=== PATIENT | male | born 1985 | race Caucasian/White ===

== ENCOUNTER 2023-11-10 06:51 | Emergency (ER) | payer MEDICAID, SELFPAY ==
--- NOTE | ~2023-11-10 | CT_ITS ---
CT ANGIOGRAM NECK WITH CONTRAST CT ANGIOGRAM BRAIN WITH CONTRAST CLINICAL INFORMATION: Headache and dizziness. COMPARISON: Head CT November 10, 2023. TECHNIQUE: Test bolus sequences followed by intravenous administration 70 mL of Omnipaque 350. Helical imaging was performed in the axial plane from the thoracic inlet to the skull vertex. Delayed postcontrast imaging of the head was also performed. The data was processed at the cardiac cath technologist workstation for generation of MIP sequences. Angled MIPs and volume rendered reformatted images were also generated at an offline 3D workstation under concurrent supervision. Stenoses are assessed in accordance with NASCET criteria unless otherwise indicated. This CT examination was performed using dose optimization techniques as appropriate, variously including the following: *Automated exposure control *Adjustment of mA and/or kV according to patient size (this includes techniques or standardized protocols for targeted exams where dose is matched to indication/reason for exam; i.e. extremities or head) *Use of iterative reconstruction technique FINDINGS: BRAIN: [There is no intracranial hemorrhage, hydrocephalus, extra-axial surface collection, midline shift, or other herniation pattern. Vinson to white matter differentiation is diffusely maintained without evidence of an evolved acute territorial infarct. The basilar cisterns are preserved. No significant soft tissue abnormality. No acute osseous abnormality. There is a 1.6 cm retention cyst within the posterior aspect of the right maxillary sinus. CERVICAL SOFT TISSUES AND LUNG APICES: Significant periapical disease involving the maxillary mandibular dentition. NECK CTA: [There is a classic 3 vessel configuration of the aortic arch. Proximal arch vessels are non-stenotic. The vertebral arteries are codominant. No significant ostial stenosis is visualized on either side. Both vertebral arteries are widely patent throughout their extracranial cervical course. Both common and internal carotid arteries are normal in course and caliber.] BRAIN CTA: [There is normal opacification of major intracranial arteries. No focal flow-limiting stenosis nor discrete proximal large artery occlusion. No aneurysm. Timing of the contrast bolus allows assessment of the major dural venous sinuses, which all opacify normally] CT/CT angio head neck IMPRESSION: * No acute intracranial findings. * No acute arterial occlusions and no significant arterial stenoses within the head or neck. * Significant periapical disease involving the maxillary and mandibular dentition. Dental exam correlation advised.
--- NOTE | ~2023-11-10 | CT_ITS ---
EXAMINATION: CT HEAD WITHOUT CONTRAST CLINICAL INFORMATION: Posterior headache evaluate for stroke COMPARISON: None available. TECHNIQUE: Contiguous axial imaging was performed from the skull base to vertex without intravenous administration of contrast. This CT examination was performed using dose optimization techniques as appropriate, variously including the following: *Automated exposure control *Adjustment of mA and/or kV according to patient size (this includes techniques or standardized protocols for targeted exams where dose is matched to indication/reason for exam; i.e. extremities or head) *Use of iterative reconstruction technique DLP: 878.24 mGy-cm FINDINGS: There is no evidence of acute intracranial hemorrhage or territorial infarction. No abnormal mass effect or midline shift is seen. Vinson to white matter differentiation is well preserved. No extra-axial fluid collections are identified. The ventricles are normal in size. There is no abnormal attenuation within the brain parenchyma. The osseous structures and soft tissues are normal. Mucosal polyp versus retention cyst right maxillary sinus. The mastoid air cells and visualized portions of the paranasal sinuses are well aerated. CT/CT head/brain wo IV con IMPRESSION: No acute intracranial pathology. This critical result was discussed with Krystal Quiles by telephone on 11/10/2023 9:40 AM and it was ascertained that the content and urgency of the report was understood at the time of direct communication.
--- NOTE | 2023-11-10 07:08 | ECG_ITS ---
Test Reason : weakness Blood Pressure : / mmHG Vent. Rate : 082 BPM Atrial Rate : 082 BPM P-R Int : 162 ms QRS Dur : 094 ms QT Int : 370 ms P-R-T Axes : 042 -40 042 degrees QTc Int : 432 ms Normal sinus rhythm Left axis deviation Abnormal ECG No previous ECGs available Referred By: Krystal Quiles Electronically Signed By:NAKITA APONTE
[2023-11-10 07:11] VITALS: BP 138/86; BP 140/92; PULSE 106; PULSE 87; RESP 16; TEMP 36.8; O2SAT 97; O2SAT 99; BMI 32.0
--- NOTE | 2023-11-10 07:14 | PC.NURSE ---
a&ox4. vss and up to date. nsr on the gambling monitor. biba from home d/t generalized intermittent BARRAGAN/dizziness/weak/decreased PO intake x yesterday. pt c/o blurry vision. neuros intact. strength equal bilaterally. face symmetrical. able to speak in full/clear sentences. ekg performed by tech. no sob/wob noted. respirations even/unlabored. plan of care ongoing. call oneill placed within reach.
--- NOTE | 2023-11-10 07:23 | PC.NURSE ---
20gIV placed in the right AC - labs obtained/sent to lab.
[2023-11-10 07:26] LABS: MANUAL DIFF FLAG NO
[2023-11-10 07:27] LABS: Basophils Absolute Auto 0.1 X10*3/uL (0.0-0.2); Basophils Percent Auto 0.4 % (0-2); Eosinophils Absolute Auto 0.4 X10*3/uL (0.0-0.4); Eosinophils Percent Auto 3.8 % (0-4); Imm Gran Abs Auto 0.03 X10*3/uL (0.00-0.03); Imm Gran Pct Auto 0.3 % (0.0-0.4); Lymphocytes Percent Auto 26.3 % (20-40); Mean Corpuscular HGB Conc 35.6 g/dl (31.0-36.0); Mean Corpuscular Hemoglobin 31.1 pg (27.0-33.0); Mean Corpuscular Volume 87.5 fL (80.0-98.0); Mean Platelet Volume 11.5 fL (9.4-12.4); Monocytes Percent Auto 9.1 % (2-11); Neutrophils Absolute Auto 6.9 x10*3/uL (2.0-8.3); Neutrophils Percent Auto 60.1 % (45-73); Platelet Count 220 X10*3/uL (160-400); Red Blood Count 5.14 X10*6/uL (4.60-5.80); Red Cell Distribution Width 12.9 % (11.0-16.0); White Blood Count 11.5 X10*3/uL (4.8-10.8)
--- NOTE | 2023-11-10 07:31 | ED_ITS ---
HPI - General Adult General Chief complaint: General Medical Stated complaint: SYNCOPE Time Seen by Provider: 11/10/23 06:52 Source: patient, EMS, RN notes reviewed and old records reviewed Mode of arrival: EMS Limitations: no limitations History of Present Illness ED Provider: KRYSTAL QUILES PA-C HPI narrative: 38 year old male with pmhx significant for presents to the ED today via EMS from home for evaluation of generalized intermittent headache, dizziness, and generalized weakness which began on waking 24 hours ago. Describes dizziness as a light headed sensation that only occurs when his google watch states his heart rate is elevated to low 110's. Dizziness is not exacerbated with head movements or positional changes. Admits that he has to stand up and ambulate in order for his symptoms to resolve. His headache began occipitally and radiates to bilateral temples. This has been constant since onset, rate it a 7/10. Endorses associated blurred vision within his right eye. Denies fever, chills, ear pain, double vision, vision loss, chest pain, sob, LE pain/ swelling. Denies recent travel or long car rides. Denies difficulty ambulating or speaking. Related Data Previous Rx's ?Medication ?Instructions ?Recorded diphenhydramine HCl 25 mg capsule 50 mg (2 x 25 mg) PO Q6-8H PRN 11/10/23 (Benadryl) headache #14 caps metoclopramide HCl 10 mg tablet 10 mg PO Q6H PRN nausea and 11/10/23 (Reglan) vomiting #14 tabs Allergies Allergy/AdvReac Type Severity Reaction Status Date / Time Penicillins Allergy Unknown Verified 11/10/23 07:12 tramadol Allergy Unknown Verified 11/10/23 07:12 Review of Systems 2 Review of Systems: Constitutional: No fever, chills, fatigue, night sweats, weight changes, + generalized weakness ENT/Mouth: No ear pain, hearing loss, nasal congestion, sinus pain, rhinorrhea, sore throat Eyes: No eye pain, swelling, redness, vision changes, discharge Cardio: No chest pain, palpitations, STONE, orthopnea, peripheral edema Pulm: No SOB, cough, sputum, wheezing, dyspnea, hemoptysis GI: No nausea, vomiting, hematemesis, abdominal pain, diarrhea, constipation, hematochezia, melena : No irregular bleeding, dysuria, frequency, urgency, hesitancy, hematuria, flank pain, urinary flow changes, urinary incontinence or retention MSK: No back pain, neck pain, joint pain, myalgias Skin: No lesions, rashes Neuro: No weakness, numbness, paresthesias, LOC, +dizziness, +headache Psych: No anxiety/panic, depression, SI/HI, AH/VH All other systems reviewed and are negative. [facility] Past Medical History Attestation statement: The following information was validated with the patient. Source: old records reviewed and nursing notes reviewed Social History Social History Advance Directives: No Advance Directives Information Provided: No Do you have a plan to hurt others: No Plan Physical Exam ED Vital Signs: Vital Signs - 24 hr 11/10/23 07:11 11/10/23 10:43 Temperature 98.2 F 98.6 F Pulse Rate 87 77 Respiratory Rate 16 18 Blood Pressure 138/86 132/85 Pulse Oximetry 97 98 Oxygen Delivery Method Room Air Room Air BMI result Body Mass Index 32.0 Vital signs stable, afebrile General: Well appearing, in no acute distress. Skin: Warm, dry, intact. No rashes or lesions. Head: Normocephalic, atraumatic. EENT: Hearing is intact b/l. Conjunctiva clear. Sclera is anicteric. PERRLA. EOM intact. Moist mucous membranes.? Neck: Supple without LAD. FROM. Trachea midline.? Cardiac: Chest wall symmetric. Tachycardiac. No MRG. No JVD. Lungs: Normal respiratory effort without accessory muscle use. CTA bilaterally. No rales, rhonchi, or wheezes.? Abdomen: Soft, non-tender, non-distended. No rebound tenderness or guarding. Positive BS x4. Back: No midline spinous or paraspinal tenderness. No step off deformity. Ext: Upper and lower extremities atraumatic, without tenderness, deformity, swelling or erythema. Full ROM throughout. Strength 5/5 throughout. Capillary refill <2 seconds in all extremities. Pulses 2+ equal and bilateral. Neuro: AOx3. Normal speech. No facial droop, pronator drift. CN 2-12 grossly intact. No nystagmus. Visual price intact. Strength 5/5 intact throughout. Sensation intact to light touch. NV intact distally. Ambulating with steady gait. No dysmetria. Psych: Appropriate mood and affect. Responds appropriately to questions. Course Course Course Narrative: 0800 -- CBC with slight leukocytosis to 11.5, no left shift. no anemia. h&h stable. chemistry without acute electrolyte abnormality requiring intervention. BUN 5, Cr 0.85. hypercalcemic to 10.5. with elevated PTH. EKG showing normal sinus rhythm with a rate of 82 beats per minute, QT 370, QTC 432, no acute ischemic changes or ST elevations. He has tested negative for covid/flu/rsv. 823-- I discussed case with my attending physician. Given patient's presentation, acute CVA cannot be ruled out. As symptoms began >24 hours ago, patient is out of therapeutic window for ischemia. Will obtain dry CT head/brain while ddimer is pending. Plan for CTA head/neck if ddimer negative. Patient will likely require admission to medicine for cerebellar stroke work up including MRI if this cannot be obtained from ED. 917-- Ddimer negative. CT angio head/ neck ordered to assess for dissection. > also discussed w/ hospitalist NOAH Wu who agrees w/ MRI brain w/ possible neuro consult/ admission. 942 -- Received call from [facility] regarding ct head w/o con -- negative for hemorrhage. > discussed need for MRI with patient. reports associated anxiety/ claustrophobia regarding this scan. after a long discussion about the need for scan to r/o posterior stroke, patient is agreeable to prophylactic ativan administation prior to imaging. 1111-- CT angio head/neck does not reveal acute dissection or stenosis. MRI brain pending. > patient recieving reglan, benadryl, and toradol for BARRAGAN 1239 -- Patient pre-medicated with 1mg PO ativan prior to imaging. Per electrical instrumentation technician, upon entering the room, patient began shaking and adamantly declining MRI scan stating I can't do it . I was informed of the situation and patient was brought back to the ED. I further discussed the crucial need for MRI with patient. Patient informed that this imaging is best to rule out a posterior stroke as we are unable to see this on the 2 other imaging modalities of his brain that he received today. I offered to provide patient with additional IM Ativan however this would require admission to medicine as MRI is unable to fit patient into the schedule in a timely manner d/t patient load. Patient continues to decline MRI and admission has he has pets to care for at home. I advised that he try and find someone to watch his pets while he is admitted and he state that he has no one else to watch them. I informed patient that declining MRI at this time can lead to worsening symptoms, worsening pain, decreased quality of life, disability, permanent neuro deficits, and even . Patient verbalizes understanding to both me and RN Tessa. He will be signing AMA paperwork. > Discussed worsening signs and symptoms and when to return to the ED. Patient is ambulating with steady gait. Continues to speak in clear sentences. > will send reglan and benadryl to pharmacy for BARRAGAN. Dizziness is not consistent with vertigo and I do not feel as though meclizine is warranted at this time. Medications Administered Discontinued Medications Generic Name Dose Route Start Last Admin Trade Name Freq PRN Reason Stop Dose Admin Diphenhydramine HCl 50 mg 11/10/23 09:43 11/10/23 09:47 Diphenhydramine Hcl 50 Mg/Ml Vial IVPUSH 11/10/23 09:44 50 mg ONCE ONE Administration Sodium Chloride 1,000 mls @ 999 mls/hr 11/10/23 08:00 11/10/23 09:50 Ns IV 11/10/23 09:00 Infused .Q1H1M ARABELLA Infusion Iohexol 100 ml 11/10/23 10:07 11/10/23 10:07 Iohexol 350 Mg/Ml 100 Ml Infus..Btl IV 11/10/23 10:08 70 ml ONCE ONE Administration Ketorolac Tromethamine 15 mg 11/10/23 11:10 11/10/23 11:32 Ketorolac Tromethamine 15 Mg/Ml Vial IVPUSH 11/10/23 11:11 15 mg ONCE ONE Administration Lorazepam 1 mg 11/10/23 11:52 11/10/23 11:56 Lorazepam 1 Mg Tablet PO 11/10/23 11:53 1 mg ONCE ONE Administration Metoclopramide HCl 10 mg 11/10/23 11:10 11/10/23 11:32 Metoclopramide Hcl 10 Mg/2 Ml Vial IVPUSH 11/10/23 11:11 10 mg ONCE ONE Administration Medical Decision Making Medical Decision Making [facility] Narrative: 38 year old male with pmhx significant for presents to the ED today via EMS from home for evaluation of generalized intermittent headache, dizziness, weakness which began on waking 24 hours ago. Differential diagnoses includes: BPPV vs labrynthitis. No red flag features for central vertigo to vertical/bidirectional or nonfatigable nystagmus, focal neurologic findings on exam (including inability to ambulate). Presentation not consistent with an acute DYNAMOMETER MECHANIC infection, vertebral basilar artery insufficiency, cerebellar hemorrhage or infarction,?intracranial mass or bleed, temporal lobe epilepsy,?MS, trauma, complex migraine headache. Other acute, emergent causes of vertigo are unlikely given at this time. Viral syndrome, ACS, arrhythmia and PE are also on differential. PERC 1 (tachycardic to 110's in room). Plan: labs, trop, ekg, ddimer, CT head, CTA head/neck Differential Diagnosis Differential Diagnoses: The differential diagnosis associated with the presentation includes as above. Admission/Observation Consideration of admission/observation: Escalation of care including admission/observation considered Patient declining admission to medicine for MRI brain. Consult Healthcare Provider Management of the patient was discussed with: Hospitalist (Jazmin Le) Lab Data [facility] Lab Attestation statement: I reviewed the patient's lab results. As above 11/10/23 07:18 11/10/23 07:18 Labs: Lab Results 11/10/23 11/10/23 Range/Units 07:18 08:40 WBC 11.5 H (4.8-10.8) X10*3/uL RBC 5.14 (4.60-5.80) X10*6/uL Hgb 16.0 (14.0-18.0) g/dl Hct 45.0 (42.0-52.0) % MCV 87.5 (80.0-98.0) fL MCH 31.1 (27.0-33.0) pg MCHC 35.6 (31.0-36.0) g/dl RDW 12.9 (11.0-16.0) % Plt Count 220 (160-400) X10*3/uL MPV 11.5 (9.4-12.4) fL Immature Gran % (Auto) 0.3 (0.0-0.4) % Neut % (Auto) 60.1 (45-73) % Lymph % (Auto) 26.3 (20-40) % [place] % (Auto) 9.1 (2-11) % Eos % (Auto) 3.8 (0-4) % Baso % (Auto) 0.4 (0-2) % Lymph # (Auto) 3.0 (1.2-4.9) X10*3/uL [place] # (Auto) 1.0 (0.1-1.2) X10*3/uL Eos # (Auto) 0.4 (0.0-0.4) X10*3/uL Baso # (Auto) 0.1 (0.0-0.2) X10*3/uL Abs Immat Gran (auto) 0.03 (0.00-0.03) X10*3/uL Absolute Neuts (auto) 6.9 (2.0-8.3) x10*3/uL Absolute Nucleated RBC 0.000 (0.0-0.012) X10*3/uL Nucleated RBC % (auto) 0.0 (0.0-0.2) /100WBC D-Dimer High Sensitivty < 150 NG/ML Sodium 143 (135-145) mmol/L Potassium 3.5 (3.3-5.1) mmol/L Chloride 106 (96-108) mmol/L Carbon Dioxide 24 (22-29) mmol/L Anion Gap 17 (12-20) BUN 5 L (9-16) mg/dL Creatinine 0.85 (0.5-1.4) mg/dL Estim Creat Clear Calc 143.2 Estimated GFR > 60 Random Glucose 105 (60-115) mg/dL Calcium 10.5 H (8.4-10.2) mg/dL Total Bilirubin 0.5 (0.0-1.0) mg/dL AST 22 (5-37) U/L ALT 39 (0-40) U/L Alkaline Phosphatase 64 (39-117) U/L Troponin I High Sens < 2.7 (<3.5-35.0) ng/L Total Protein 7.6 (6.5-8.0) g/dL Albumin 4.8 (3.5-5.0) g/dL PTH Intact 81.7 H (8.7-77.1) pg/mL Influenza Type A (PCR) NEGATIVE (Negative) Influenza Type B (PCR) NEGATIVE (Negative) RSV RNA Qual (PCR) NEGATIVE (Negative) SARS-CoV-2 RNA (RT-PCR) NEGATIVE (Negative) Independent Interpretation I performed an independent interpretation of an: EKG and CT Scan Interpretation: EKG showing normal sinus rhythm with a rate of 82 beats per minute, QT 370, QTC 432, no acute ischemic changes or ST elevations. CT head/ brain w/o con does not reveal acute hemorrhage, agree with radiologist's interpretation. CTA head/ neck without acute dissection, agree with radiologist's interpretation. Radiology Impression Discussion of test interpretation with radiology: I have reviewed the radiologist's reading. Radiologist Impression: EXAMINATION: CT HEAD WITHOUT CONTRAST CLINICAL INFORMATION: Posterior headache evaluate for stroke COMPARISON: None available. TECHNIQUE: Contiguous axial imaging was performed from the skull base to vertex without intravenous administration of contrast. This CT examination was performed using dose optimization techniques as appropriate, variously including the following: *Automated exposure control *Adjustment of mA and/or kV according to patient size (this includes techniques or standardized protocols for targeted exams where dose is matched to indication/reason for exam; i.e. extremities or head) *Use of iterative reconstruction technique DLP: 878.24 mGy-cm FINDINGS: There is no evidence of acute intracranial hemorrhage or territorial infarction. No abnormal mass effect or midline shift is seen. Vinson to white matter differentiation is well preserved. No extra-axial fluid collections are identified. The ventricles are normal in size. There is no abnormal attenuation within the brain parenchyma. The osseous structures and soft tissues are normal. Mucosal polyp versus retention cyst right maxillary sinus. The mastoid air cells and visualized portions of the paranasal sinuses are well aerated. CT/CT head/brain wo IV con IMPRESSION: No acute intracranial pathology. This critical result was discussed with Krystal Quiles by telephone on 11/10/2023 9:40 AM and it was ascertained that the content and urgency of the report was understood at the time of direct communication. CT ANGIOGRAM NECK WITH CONTRAST CT ANGIOGRAM BRAIN WITH CONTRAST CLINICAL INFORMATION: Headache and dizziness. COMPARISON: Head CT November 10, 2023. TECHNIQUE: Test bolus sequences followed by intravenous administration 70 mL of Omnipaque 350. Helical imaging was performed in the axial plane from the thoracic inlet to the skull vertex. Delayed postcontrast imaging of the head was also performed. The data was processed at the nanotechnologist workstation for generation of MIP sequences. Angled MIPs and volume rendered reformatted images were also generated at an offline 3D workstation under concurrent supervision. Stenoses are assessed in accordance with NASCET criteria unless otherwise indicated. This CT examination was performed using dose optimization techniques as appropriate, variously including the following: *Automated exposure control *Adjustment of mA and/or kV according to patient size (this includes techniques or standardized protocols for targeted exams where dose is matched to indication/reason for exam; i.e. extremities or head) *Use of iterative reconstruction technique FINDINGS: BRAIN: [There is no intracranial hemorrhage, hydrocephalus, extra-axial surface collection, midline shift, or other herniation pattern. Vinson to white matter differentiation is diffusely maintained without evidence of an evolved acute territorial infarct. The basilar cisterns are preserved. No significant soft tissue abnormality. No acute osseous abnormality. There is a 1.6 cm retention cyst within the posterior aspect of the right maxillary sinus. CERVICAL SOFT TISSUES AND LUNG APICES: Significant periapical disease involving the maxillary mandibular dentition. NECK CTA: [There is a classic 3 vessel configuration of the aortic arch. Proximal arch vessels are non-stenotic. The vertebral arteries are codominant. No significant ostial stenosis is visualized on either side. Both vertebral arteries are widely patent throughout their extracranial cervical course. Both common and internal carotid arteries are normal in course and caliber.] BRAIN CTA: [There is normal opacification of major intracranial arteries. No focal flow-limiting stenosis nor discrete proximal large artery occlusion. No aneurysm. Timing of the contrast bolus allows assessment of the major dural venous sinuses, which all opacify normally] CT/CT angio head neck IMPRESSION: * No acute intracranial findings. * No acute arterial occlusions and no significant arterial stenoses within the head or neck. * Significant periapical disease involving the maxillary and mandibular dentition. Dental exam correlation advised. Independent Historian Clinical information obtained from an independent historian. History obtained from or confirmed by: EMS Prescription Management I considered prescription management with: Other (Reglan, Benadryl) Social Determinants Patient?s care significantly limited by Social Determinants of Health including: Other Social Determinant of Health Critical Care Time Critical Care Time Critical Care Time: Yes Total Critical Care Time: 40 Attestation: Critical care time in the amount of 40 minutes has been provided to the patient in terms of direct patient care, frequent reevaluation, consultation with hospitalist, review and interpretation of medical data and results, and management of potentially life-threatening conditions. This is all outside of any medical procedures. Discharge Plan Discharge Clinical Impression: Dizziness, Headache Patient Disposition: Left Against Medical Advice Instructions: Vertigo (ED), Acute Headache (ED), Dizziness (ED) Additional Instructions: You have been evaluated in the Emergency Department today for headache and dizziness. Sometimes it is difficult to explain the cause of headache but the negative workup today is reassuring. Please take the following medications together every 6 hours as needed for headache, nausea or vomiting. ? - Reglan 10 mg - Benadryl 50 mg After you take these medications, lie down in a dark quiet room and try to fall asleep. ?These medications will make you sleepy, do not drive or work after taking these medications. Your calcium levels were elevated. Please follow up with your primary care physician within two days. If you do not have a PCP, a referral has been provided to you. As discussed, return to the Emergency Department if you experience worsening or uncontrolled pain, vision changes, recurrent vomiting, difficulty with normal activities, abnormal behavior, difficulty walking, numbness, weakness, or any other concerning symptoms. Prescriptions: New metoclopramide HCl [Reglan] 10 mg tablet 10 mg PO Q6H PRN (Reason: nausea and vomiting) Qty: 14 0RF diphenhydramine HCl [Benadryl] 25 mg capsule 50 mg PO Q6-8H PRN (Reason: headache) Qty: 14 0RF Referrals: [facility] Primary [facility], [place] [Provider Group] [facility] Neuro/Sleep [Provider Group] Stand Alone Forms: Against Medical Advice Print Language: Pashto
[2023-11-10 07:41] LABS: Alanine Aminotransferase 39 U/L (0-40); Albumin Level 4.8 g/dL (3.5-5.0); Alkaline Phosphatase 64 U/L (39-117); Anion Gap 17 (12-20); Aspartate Amino Transferase 22 U/L (5-37); Bilirubin Total 0.5 mg/dL (0.0-1.0); Blood Urea Nitrogen 5 mg/dL (9-16); Calcium 10.5 mg/dL (8.4-10.2); Carbon Dioxide 24 mmol/L (22-29); Chloride 106 mmol/L (96-108); Creatinine Clr Calc Pharmacy 143.2; Estimated Glomerular Filt Rate > 60; Glucose Random 105 mg/dL (60-115); Potassium 3.5 mmol/L (3.3-5.1); Sodium 143 mmol/L (135-145); Total Protein 7.6 g/dL (6.5-8.0)
[2023-11-10 08:07] LABS: Influenza A PCR NEGATIVE (Negative); Influenza B PCR NEGATIVE (Negative); Resp Syncy Virus RNA Qual PCR NEGATIVE (Negative); SARS COV2 PCR INHOUSE NEGATIVE (Negative)
[2023-11-10] MEDS: 0.9 % Sodium Chloride 1,000 ML 999 ML IV (08:22)
[2023-11-10 08:23] LABS: Troponin-I High Sensitivity < 2.7 ng/L (<3.5-35.0)
--- NOTE | 2023-11-10 09:00 | PC.NURSE ---
IVF administered per provider order. labs obtained/sent to lab by [facility]. head CT completed.
[2023-11-10 09:14] LABS: Parathyroid Hormone Intact 81.7 pg/mL (8.7-77.1)
[2023-11-10 09:16] LABS: D Dimer High Sensitivity < 150 NG/ML
[2023-11-10] MEDS: diphenhydrAMINE HCL 50 MG/ML VIAL IVPUSH (09:47)
--- NOTE | 2023-11-10 09:48 | PC.NURSE ---
MRI screening form filled out/faxed/placed in pt's chart. medication administered per provider order. CTA being completed at this time.
[2023-11-10] MEDS: iohexoL 350 MG/ML 100 ML INFUS..BTL IV (10:07)
[2023-11-10 10:43] VITALS: BP 132/85; PULSE 77; RESP 18; TEMP 37; O2SAT 98
--- NOTE | 2023-11-10 10:43 | PC.NURSE ---
vss and up to date. pt waiting to go to MRI at this time.
[2023-11-10] MEDS: Ketorolac Tromethamine 15 MG/ML VIAL IVPUSH (11:32)
[2023-11-10] MEDS: Metoclopramide HCl 10 MG/2 ML VIAL IVPUSH (11:32)
--- NOTE | 2023-11-10 11:34 | PC.NURSE ---
medication administered per provider order. effectiveness pending.
[2023-11-10] MEDS: LORazepam 1 MG TABLET PO (11:56)
--- NOTE | 2023-11-10 11:59 | PC.NURSE ---
pt medicated per provider order prior to going to MRI. pt currently going to MRI at this time via transport.
[2023-11-10 13:04] VITALS: BP 119/75; PULSE 80; RESP 14; TEMP 37; O2SAT 98
--- NOTE | 2023-11-10 13:11 | PC.NURSE ---
pt verbalizing he is unable to complete MRI. pt got to MRI/refused scan to be completed. arrived back to ED/stating that he wants to leave. pt discussed AMA risks w/ ED provider. signed paperwork. left AMA.
[2023-11-10 13:12] VITALS: BP 119/75; PULSE 80; RESP 14; TEMP 37; O2SAT 98
== END 2023-11-10 13:12 | disposition left against medical advice (07) ==
PROVIDERS: Physician Assistant Medical; Emergency Provider Emergency Medicine Emergency Medical Services
DX: R55 Syncope and collapse (principal); R51.9 Headache, unspecified; R42 Dizziness and giddiness; R53.1 Weakness; R11.0 Nausea; Z03.818 Encounter for observation for suspected exposure to other biological agents ruled out; Z79.899 Other long term (current) drug therapy
CPT/HCPCS: 0241U; 36415; 70450; 70496; 70498; 80053; 83970; 84484; 85025; 85379; 93005; 96361; 96374; 96375; 99284; J1200; J1885; J2765; Q9967

== ENCOUNTER → 2023-11-10 07:08 | Outpatient (BNV) | payer MEDICAID, SELFPAY | PROVIDERS: Emergency Provider Emergency Medicine Emergency Medical Services; Visit Provider Internal Medicine | DX: R94.31 Abnormal electrocardiogram [ECG] [EKG] (principal); R53.1 Weakness | CPT/HCPCS: 93010 ==

== ENCOUNTER 2023-11-24 02:01 | Emergency (ER) | payer MEDICAID, SELFPAY ==
--- NOTE | 2023-11-24 | ECG_ITS ---
Test Reason : CHEST PAIN Blood Pressure : / mmHG Vent. Rate : 080 BPM Atrial Rate : 080 BPM P-R Int : 154 ms QRS Dur : 096 ms QT Int : 360 ms P-R-T Axes : 033 -33 057 degrees QTc Int : 415 ms Normal sinus rhythm Left axis deviation Abnormal ECG When compared with ECG of 10-NOV-2023 07:09, No significant change was found Referred By: Generic ED Physician Electronically Signed By:TITA ATWOOD
[2023-11-24 02:07] VITALS: BP 117/73; BP 123/73; PULSE 85; PULSE 90; RESP 16; TEMP 36.8; O2SAT 98; O2SAT 99; BMI 30.6
[2023-11-24 02:19] LABS: MANUAL DIFF FLAG NO
[2023-11-24 02:20] LABS: Basophils Absolute Auto 0.1 X10*3/uL (0.0-0.2); Basophils Percent Auto 0.7 % (0-2); Eosinophils Absolute Auto 0.8 X10*3/uL (0.0-0.4); Eosinophils Percent Auto 6.9 % (0-4); Hematocrit 45.4 % (42.0-52.0); Imm Gran Abs Auto 0.02 X10*3/uL (0.00-0.03); Imm Gran Pct Auto 0.2 % (0.0-0.4); Lymphocytes Absolute Auto 3.8 X10*3/uL (1.2-4.9); Lymphocytes Percent Auto 34.6 % (20-40); Mean Corpuscular HGB Conc 35.2 g/dl (31.0-36.0); Mean Corpuscular Hemoglobin 30.9 pg (27.0-33.0); Mean Corpuscular Volume 87.8 fL (80.0-98.0); Mean Platelet Volume 12.2 fL (9.4-12.4); Monocytes Percent Auto 8.9 % (2-11); Neutrophils Absolute Auto 5.3 x10*3/uL (2.0-8.3); Neutrophils Percent Auto 48.7 % (45-73); Platelet Count 204 X10*3/uL (160-400); Red Blood Count 5.17 X10*6/uL (4.60-5.80); Red Cell Distribution Width 12.8 % (11.0-16.0); White Blood Count 10.8 X10*3/uL (4.8-10.8)
[2023-11-24 02:33] LABS: Alanine Aminotransferase 35 U/L (0-40); Albumin Level 4.5 g/dL (3.5-5.0); Alkaline Phosphatase 66 U/L (39-117); Anion Gap 15 (12-20); Aspartate Amino Transferase 19 U/L (5-37); Bilirubin Total 0.4 mg/dL (0.0-1.0); Blood Urea Nitrogen 8 mg/dL (9-16); Calcium 10.3 mg/dL (8.4-10.2); Carbon Dioxide 23 mmol/L (22-29); Chloride 107 mmol/L (96-108); Estimated Glomerular Filt Rate > 60; Glucose Random 115 mg/dL (60-115); Potassium 3.3 mmol/L (3.3-5.1); Sodium 142 mmol/L (135-145); Total Protein 7.2 g/dL (6.5-8.0)
[2023-11-24 02:55] LABS: Troponin-I High Sensitivity < 2.7 ng/L (<3.5-35.0)
[2023-11-24 05:44] VITALS: BP 116/67; PULSE 60
[2023-11-24 05:45] VITALS: BP 105/69; BP 118/73; BP 121/80; PULSE 64; PULSE 77; PULSE 81; RESP 16; TEMP 36.7; O2SAT 98
--- NOTE | 2023-11-24 06:57 | ED.GENADULT ---
HPI - General Adult General Chief complaint: General Medical Stated complaint: CHEST TIGHTNESS/DIZZINESS Time Seen by Provider: 11/24/23 05:35 Source: patient Mode of arrival: ambulatory Limitations: no limitations History of Present Illness ED Provider: Dr. Sherrie Esparza HPI narrative: Patient comes to the emergency room stating that prior to arrival, he was eating a bowl of cereal and had a sudden onset of feeling hot flashes from the neck down the ways. Patient states it felt like he just had injected with IV contrast. Patient states that he has had multiple episodes of vomiting, dizziness. Patient came by ambulance, refused IV placement. Patient denies any syncopal episodes Related Data Previous Rx's ?Medication ?Instructions ?Recorded diphenhydramine HCl 25 mg capsule 50 mg (2 x 25 mg) PO Q6-8H PRN 11/10/23 (Benadryl) headache #14 caps metoclopramide HCl 10 mg tablet 10 mg PO Q6H PRN nausea and 11/10/23 (Reglan) vomiting #14 tabs Allergies Allergy/AdvReac Type Severity Reaction Status Date / Time Penicillins Allergy Unknown Verified 11/24/23 02:10 tramadol Allergy Unknown Verified 11/24/23 02:10 Review of Systems Review of Systems: Constitutional : No Weight loss, No Fever, No Chills, No Night Sweats, No Fatigue, No Malaise, complaining of a hot flash/IV contrast like sensation running through his body. ENT/Mouth : No Hearing loss, No Ear Pain, No Nasal Congestion, No Sinus Pain, No Hoarseness, No sore throat, No Rhinorrhea, No Swallowing Difficulty Eyes: No Eye Pain, No Swelling, No Redness, No Foreign Body, No Discharge, No Vision Changes Cardiovascular : No Chest Pain, No SOB, No Dyspnea on Exertion, No Orthopnea, No Edema, No Palpitations Respiratory : No Cough, No Sputum, No Wheezing, No Smoke Exposure, No Dyspnea Gastrointestinal : Multiple episodes of nausea and vomiting, No Diarrhea, No Constipation, No abdominal Pain, No Hematochezia, No Melena Genitourinary : no irregular bleeding, No Dysuria, No Urinary Frequency, No Hematuria, No Urinary Incontinence, No Urgency, No Flank Pain, No Urinary Flow Changes, No Hesitancy Musculoskeletal : No joint pain, No Myalgias, No Joint Swelling Skin : No Skin Lesions, No rash Neuro : No Weakness, No Numbness, No Paresthesias, No Loss of Consciousness, No Dizziness, No Headache Psych : No Anxiety/Panic, No Depression, No SI/HI/AH/VH, No Social Issues, Heme/Lymph: No Bruising, No Bleeding,No Lymphadenopathy Endocrine : No Polyuria, No Polydipsia, No Temperature Intolerance [facility] Social History Social History Alcohol intake: never Smoked in Last 30 Days: Yes Use of substances other than those prescribed or required for medical reasons: No Advance Directives: No Advance Directives Information Provided: Yes Physical Exam ED Vital Signs: Vital Signs - 24 hr 11/24/23 02:07 11/24/23 05:44 11/24/23 05:45 Temperature 98.3 F 98.1 F Pulse Rate 85 60 81 Respiratory Rate 16 16 Blood Pressure 117/73 116/67 105/69 Pulse Oximetry 98 98 Oxygen Delivery Method Room Air Room Air 11/24/23 05:45 11/24/23 05:45 Temperature Pulse Rate 64 77 Respiratory Rate Blood Pressure 118/73 121/80 Pulse Oximetry Oxygen Delivery Method BMI result Body Mass Index 30.6 Const Other: Appearance: Alert. Oriented X3. No acute distress. Eyes: Pupils equal, round and reactive to light. ENT: Pharynx normal. Neck: Normal inspection. Neck supple. No lymph nodes noted. No crepitus CVS: Normal heart rate and rhythm. Pulses normal. Normal S1 and S2 Respiratory: No respiratory distress. Breath sounds normal. No Wheezing. No rales Abdomen: Soft and nontender. No rigidity. No distention. Skin: Skin warm and dry. Normal skin color. Normal skin turgor. Extremities: No lower extremity edema. No Lacerations. No Rash Neuro: Oriented X 3. No motor deficit. No sensory deficit. Moving all extremities. No slurred speech. CN 2 through 12 grossly intact Psych: calm, cooperative, normal affect Medical Decision Making Medical Decision Making MDM Narrative: My interpretation of EKG: Normal sinus rhythm, heart rate 80, no ST segment depression or elevation, no T-wave inversion, QTC 415. EKG are not crossing over to the [employer] system -my interpretation of labs: Normal hematology, normal chemistry, normal troponin -orthostatic vitals negative here in the emergency room, patient has not had a single episode of vomiting, has not been complaining of nausea. -patient admits that he has been having anxiety and panic attacks. -patient was seen here about a week ago with similar complaints. Patient left against AMA. Differential Diagnosis Differential Diagnoses: The differential diagnosis associated with the presentation includes (Orthostatic hypotension, anxiety, panic attack) Lab Data MDM Lab Attestation statement: I reviewed the patient's lab results. 11/24/23 02:15 11/24/23 02:15 Labs: Lab Results 11/24/23 Range/Units 02:15 WBC 10.8 (4.8-10.8) X10*3/uL RBC 5.17 (4.60-5.80) X10*6/uL Hgb 16.0 (14.0-18.0) g/dl Hct 45.4 (42.0-52.0) % MCV 87.8 (80.0-98.0) fL MCH 30.9 (27.0-33.0) pg MCHC 35.2 (31.0-36.0) g/dl RDW 12.8 (11.0-16.0) % Plt Count 204 (160-400) X10*3/uL MPV 12.2 (9.4-12.4) fL Immature Gran % (Auto) 0.2 (0.0-0.4) % Neut % (Auto) 48.7 (45-73) % Lymph % (Auto) 34.6 (20-40) % [place] % (Auto) 8.9 (2-11) % Eos % (Auto) 6.9 H (0-4) % Baso % (Auto) 0.7 (0-2) % Lymph # (Auto) 3.8 (1.2-4.9) X10*3/uL [place] # (Auto) 1.0 (0.1-1.2) X10*3/uL Eos # (Auto) 0.8 H (0.0-0.4) X10*3/uL Baso # (Auto) 0.1 (0.0-0.2) X10*3/uL Abs Immat Gran (auto) 0.02 (0.00-0.03) X10*3/uL Absolute Neuts (auto) 5.3 (2.0-8.3) x10*3/uL Absolute Nucleated RBC 0.000 (0.0-0.012) X10*3/uL Nucleated RBC % (auto) 0.0 (0.0-0.2) /100WBC Sodium 142 (135-145) mmol/L Potassium 3.3 (3.3-5.1) mmol/L Chloride 107 (96-108) mmol/L Carbon Dioxide 23 (22-29) mmol/L Anion Gap 15 (12-20) BUN 8 L (9-16) mg/dL Creatinine 0.87 (0.5-1.4) mg/dL Estim Creat Clear Calc 137.0 Estimated GFR > 60 Random Glucose 115 (60-115) mg/dL Calcium 10.3 H (8.4-10.2) mg/dL Total Bilirubin 0.4 (0.0-1.0) mg/dL AST 19 (5-37) U/L ALT 35 (0-40) U/L Alkaline Phosphatase 66 (39-117) U/L Troponin I High Sens < 2.7 (<3.5-35.0) ng/L Total Protein 7.2 (6.5-8.0) g/dL Albumin 4.5 (3.5-5.0) g/dL Discharge Plan Discharge Clinical Impression: Nausea & vomiting, Anxiety Patient Disposition: Home, Self-Care Instructions: Anxiety (ED) Additional Instructions: Please follow-up with your primary care physician tomorrow. If you have any worsening or new symptoms, please return to the emergency room or call 911 Prescriptions: No Action metoclopramide HCl [Reglan] 10 mg tablet 10 mg PO Q6H PRN (Reason: nausea and vomiting) Qty: 14 0RF diphenhydramine HCl [Benadryl] 25 mg capsule 50 mg PO Q6-8H PRN (Reason: headache) Qty: 14 0RF Print Language: Sen[place]ales[place]
[2023-11-24 07:09] VITALS: BP 105/69; PULSE 81; RESP 16; TEMP 36.7; O2SAT 98
== END 2023-11-24 07:10 | disposition home or self-care (01) ==
PROVIDERS: Emergency Provider Emergency Medicine
DX: R07.89 Other chest pain (principal); F41.9 Anxiety disorder, unspecified; R11.2 Nausea with vomiting, unspecified; Z79.899 Other long term (current) drug therapy
CPT/HCPCS: 36415; 80053; 84484; 85025; 93005; 99283; 99284